=== PATIENT | male | born 1950 | race Caucasian/White ===

== ENCOUNTER 2019-11-15 08:42 | Day surgery (SDC) | payer MEDICARE ==
[~2019-11-15] VITALS: Ht 175.3 cm; Wt 69.9 kg
[2019-11-15] VITALS (9 sets, daily range): BP systolic 91–143; BP diastolic 48–84
[~2019-11-15 08:42] MED LIST: ASPI-611 PO; ATOR-2 PO; DIGO125T97 PO; HYDR-4069 PO; ISOS30TA6 PO; LANTUS SQ; LOSA50TA3 PO; MAGN400T29 PO; PANT-47 PO; SPIR25TA5 PO; TORS20TA3 PO
[2019-11-15] MEDS ORDERED: diphenhydrAMINE 25mg capsule PO PRN (09:05)
[2019-11-15] MEDS ORDERED: normal saline 1,000 ML IV SCH ×2 (09:05→13:25)
[2019-11-15 09:43] LABS: BASOPHILS # (AUTO) 0.1 X10'3 (0-0.2); BASOPHILS % (AUTO) 0.6 % (0-1); EOSINOPHILS # (AUTO) 0.1 X10'3 (0-0.9); EOSINOPHILS % (AUTO) 0.7 % (0-6); HEMOGLOBIN 14.2 g/dl (14.0-17.9); LYMPHOCYTES # (AUTO) 1.4 X10'3 (1.1-4.8); LYMPHOCYTES % (AUTO) 17.1 % (21-51); MEAN CORPUSCULAR HEMOGLOBIN 30.4 PG (27.0-31.0); MEAN CORPUSCULAR HGB CONC 33.9 g/dL (33.0-36.5); MEAN CORPUSCULAR VOLUME 89.8 FL (78-98); MONOCYTES # (AUTO) 0.7 X10'3 (0-0.9); MONOCYTES % (AUTO) 8.5 % (2-12); NEUTROPHILS # (AUTO) 6.1 X10'3 (1.8-7.7); NEUTROPHILS % (AUTO) 73.1 % (42-75); PLATELET COUNT 198 X10'3 (140-440); RED BLOOD COUNT 4.68 X10'6 (4.70-6.10); RED CELL DISTRIBUTION WIDTH 13.8 % (11.5-14.5); WHITE BLOOD COUNT 8.4 X10'3 (4.5-11.0)
[2019-11-15 09:52] LABS: ANION GAP 12 (8-16); BLOOD UREA NITROGEN 51 MG/DL (7-18); BUN/CREATININE RATIO 26.4 (5.4-32.0); CALCIUM 8.8 MG/DL (8.5-10.1); CHLORIDE 105 MMOL/L (99-107); CREATININE 1.93 MG/DL (0.60-1.10); GLUCOSE 148 MG/DL (70-104); MAGNESIUM 2.1 MG/DL (1.5-2.4); POTASSIUM 4.4 MMOL/L (3.5-5.1); SODIUM 139 MMOL/L (135-145); TOTAL CARBON DIOXIDE 21.7 MMOL/L (24-32); eGFR 35 ML/MIN
[2019-11-15] MEDS ORDERED: HYDR100T27 PO (10:47)
[2019-11-15] MEDS ORDERED: AMIO200T62 PO (10:47)
[2019-11-15] MEDS ORDERED: SACU1TAB PO (10:47)
[2019-11-15] MEDS ORDERED: midazolam 2 mg/2 ml injection ONE ×2 (11:33→12:07)
[2019-11-15] MEDS ORDERED: iohexol 350 MG/ML 50ML vial IV ONE (11:34)
[2019-11-15] MEDS ORDERED: fentaNYL/PF 50MCG/1 ML 2ML syringe ONE (11:34)
[2019-11-15] MEDS ORDERED: LIDOcaine 1% (10mg/ml)w/preservative injection 20ml MDV ONE (11:34)
[2019-11-15] MEDS ORDERED: iohexol 350MG/ML 100ml bottle IV ONE (11:34)
[2019-11-15] MEDS ORDERED: proCHLORperazine 10 MG/2 ml inj ONE (11:56)
[2019-11-15] MEDS ORDERED: heparin 1,000unit/ml 10ml vial 10 ML ONE (12:25)
[2019-11-15] MEDS ORDERED: iohexol 350 MG/1 ML 200ml bottle ONE (12:30)
== END 2019-11-15 16:00 | disposition home or self-care (01) ==
LOC: SSTAY O 08:42
PROVIDERS: ATTEND Internal Medicine Cardiovascular Disease
DX: I25.10 Atherosclerotic heart disease of native coronary artery without angina pectoris (principal); I44.7 Left bundle-branch block, unspecified; I42.0 Dilated cardiomyopathy; I42.9 Cardiomyopathy, unspecified; I10 Essential (primary) hypertension; E78.5 Hyperlipidemia, unspecified; E11.9 Type 2 diabetes mellitus without complications; I48.0 Paroxysmal atrial fibrillation; Z98.890 Other specified postprocedural states; Z79.899 Other long term (current) drug therapy; Z88.8 Allergy status to other drugs, medicaments and biological substances
CPT/HCPCS: 36415; 80048; 83735; 85025; 85610; 92920; 93005; 93458; C1769; C1894; J0780; J1644; J2001; J2250; J3010; J7030; Q0163; Q9967; 99152; 99153; A4620; A6258; C1751; C1760